=== PATIENT | male | born 1955 | race Caucasian/White ===

== ENCOUNTER 2024-09-01 08:05 | Emergency (ER) | payer OTHER ==
--- OUTSIDE RECORDS SUMMARY | 2024-09-01 08:07 | XMS REPORT | Continuity of Care Document ---
Author Name Unknown Address [address] [place] [address] [place] [id number] [facility] [address] [place] [address]. [address] [place] [id number] Care Team Providers Care Roustabout Crew Name Role Phone Naomie Mercado Attending Clinician Unavailable Encounters Start Date/Time End Date/Time Encounter Type Admission Type Attending Clinicians Care Facility Care Department Encounter ID Source 2021-08-05 11:43:36 Outpatient Naomie Mercado [facility] [id number] [facility]
[2024-09-01] MEDS ORDERED: NA CHLORIDE 0.9% 500 ML ONE ×2 (10:07→11:51)
--- NOTE | 2024-09-01 10:12 | RAD REPORT ---
EXAM: CT Head Brain Wo Cont HISTORY: HEADACHE COMPARISON: None TECHNIQUE: Multiple contiguous axial images were obtained for a CT of the brain without contrast. Sag ittal and coronal reformats were performed. One or more of the following dose reduction techniques were used: Automated exposure control, adjus tment of the mA and kV according to patient size, and iterative reconstruction. Unless otherwise specified, incidental findings do not require dedicated imaging follow-up. FINDINGS: No evidence of hydrocephalus, intracranial hemorrhage, or extra-axial fluid collection. The brain is normal in morphology. The calvarium is intact. The visualized paranasal sinuses and mastoid air cells are essentially clear . IMPRESSION: No evidence of acute intracranial abnormality.
--- NOTE | 2024-09-01 10:12 | RAD REPORT ---
EXAMINATION: ONE VIEW CHEST XR CLINICAL INDICATION: Male, 69 years old.,COUGH TECHNIQUE: Frontal chest projection is submitted. Examination is limited by patient positioning and t echnique. COMPARISON: No prior exam. FINDINGS: The lungs are well inflated and clear. No pneumothorax or sizable effusion. The heart is normal in s ize. Mediastinal contours are unremarkable. IMPRESSION: No acute intrathoracic abnormalities.
[2024-09-01 10:48] LABS: Specific Gravity 1.013 (1.005-1.030); Urine Bilirubin NEGATIVE (Negative); Urine Blood Negative (Negative); Urine Clarity Clear (Clear); Urine Color Light-Yellow (Yellow); Urine Glucose NEGATIVE (Negative); Urine Ketones NEGATIVE (Negative); Urine Microscopic Reflex YN NO UMIC; Urine Nitrite NEGATIVE (Negative); Urine Protein NEGATIVE (Negative); Urine Urobilinogen Normal (Normal); Urine pH 6.5 (5.0-7.0)
[2024-09-01 10:51] LABS: Absolute Monocytes 0.3 K/uL (0.1-1.3); Absolute Neutrophil 4.9 K/uL (1.8-8.0); Basophils % 0.5 % (0-1.3); Eosinophils % 0.3 % (0-4.4); Hematocrit 43.5 % (39.6-49.0); Hemoglobin 14.5 g/dL (13.6-17.9); Lymphocytes % 16.5 % (15.3-44.8); MCHC 33.4 g/dL (32.0-36.0); MCV 89.9 fL (80-100); MPV 7.9 fL (7.6-11.3); Neutrophils % 77.7 % (41.7-73.7); Platelets 253 thou/uL (152-406); RBC Red Blood Cell Count 4.84 M/uL (4.33-5.43); Red Cell Distribution Width 13.2 % (12.1-15.2)
[2024-09-01 10:56] LABS: PT Prothrombin Time 10.7 SECONDS (10.0-13.0); Protime INR 0.94
[2024-09-01 11:07] LABS: Albumin 3.7 g/dL (3.4-5.0); Anion Gap 8.5 mEq/L (5.0-15.0); Bilirubin Direct 0.2 mg/dL (0-0.2); Bilirubin Indirect, Calculated 0.5 mg/dL (0.2-0.8); Bilirubin Total 0.7 mg/dL (0.2-1.0); Globulin 3.6 g/dL (2.3-3.5); Magnesium 2.1 mg/dL (1.6-2.4); Potassium 4.5 mEq/L (3.5-5.1); Protein, Total 7.3 g/dL (6.4-8.2)
[2024-09-01] MEDS ORDERED: ONDANSETRON 4 MG/2 ML VIAL ONE (11:51)
[2024-09-01] MEDS ORDERED: KETOROLAC 30 MG/ML INJ ONE (11:51)
--- NOTE | 2024-09-01 13:02 | RAD REPORT ---
EXAMINATION: CTA HEAD CLINICAL INDICATION: Male, 69 years old. HEADACHE TECHNIQUE: Axial CT images were obtained through the head after intravenous contrast utilizing angiog raphic protocol with 3D post-processing (maximum intensity projection images, volume rendered images and/or shaded surface rendered images). One or more of the following dose reduction technique s were used: Automated exposure control, adjustment of the mA and/or kV according to patient size, and/or iterative reconstruction. Unless otherwise specified, incidental findings do not require dedic ated imaging follow-up. COMPARISON: Head CT of the same day. FINDINGS: ICA: The petrous, cavernous, and supraclinoid segments of the bilateral internal carotid arteries are normal. CASIMIRO: Anterior cerebral arteries are normal bilaterally. The anterior communicating artery is patent. 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 PERFORMANCE MANAGEMENT CONSULTANT: Posterior cerebral arteries are normal bilaterally. Patent posterior communicating arteries, wit h hypoplastic left P1 segment. Vertebrobasilar: Multifocal narrowing of the nondominant right vertebral artery. Left vertebral arter y is patent.. The basilar artery is normal in appearance. 3D images confirm these findings. IMPRESSION: Multifocal narrowing of the nondominant right vertebral artery, suggesting intracranial atherosclerot ic disease. No other evidence of large vessel occlusion or critical stenosis.
--- NOTE | 2024-09-01 13:07 | RAD REPORT ---
EXAMINATION: CT Neck Angio CLINICAL INDICATION: Male, 69 years old. [facility] MAIN PAIN Bed Name: 11 TECHNIQUE: Axial CT images were obtained from the aortic arch to the skull base after intravenous con trast utilizing angiographic protocol. Multiplanar reformats, as well as 3D post-processing (maximum intensity projection images, volume rendered images and/or shaded surface rendered images) w ere generated and reviewed. One or more of the following dose reduction techniques were used: Automated exposure control, adjustment of the mA and/or kV according to patient size, and/or iterativ e reconstruction. Unless otherwise specified, incidental findings do not require dedicated imaging follow-up. COMPARISON: No prior exam. FINDINGS: AORTA: The imaged aortic arch is normal. Normal three-vessel configuration of the arch. CCA: No artifact The common carotid arteries are patent and normal in caliber. ICA/ECA: Significant short segment narrowing of the proximal right ICA along a 5 mm segment, starting approximately 1.1 cm past the origin, with narrowest luminal diameter 1.4 mm, see series 402 image 140, compared to 4.5 mm distally, amounting to 69% stenosis. Multifocal moderate narrowing along the most distal right cervical ICA is well with narrowest luminal diameter 2.2 mm. Moderate atherosclerotic plaque along the proximal left ICA, without significant stenosis about 50%. External carotid arteries are patent. VERTEBRAL: Bilateral severe narrowing at the origins of the bilaterally. Multifocal narrowing through out the course of the right cervical vertebral artery, most pronounced along the mid to distal right V3 segment at the level of C2 transverse foramen. Left vertebral artery is dominant. SOFT TISSUE: No significant neck soft tissue abnormalities. The visualized lung apices are clear. 3D images confirm these findings. IMPRESSION: Significant short segment stenosis of the proximal right ICA, with up to 69% stenosis by NASA criteri a. Moderate multifocal stenosis along the distal right cervical ICA is well. Bilateral severe focal narrowing at the vertebral artery origins. NASCET criteria used to quantify ICA stenosis, with the following grading scheme: Mild 0-49% stenosis Moderate 50-69% stenosis Severe 70-99% stenosis Reference: [place] Symptomatic Carotid Endarterectomy Trial Collaborators; Jodi MENJIVAR, Kathy AVALOS, Subha RB, et al. Beneficial effect of carotid endarterectomy in symptomatic patients with high-grade carotid stenosis. N Engl J Med. 1990 15;325(7):445-53.
--- NOTE | 2024-09-01 13:22 | ER ---
Nurse's Notes [facility] Name: Jose Murray Age: 69 yrs Sex: Male : 1955 Arrival Date: 09/01/2024 Time: 08:05 Bed 11 Private MD: Diagnosis: Headache;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;Occlusion and stenosis of right carotid artery Presentation: 09/01 09:08 Chief complaint: Patient states: he was woken up in the middle of the night with head ap3 and neck pain that he felt in "the middle of my temples and down the right side of my ear and into my both side of my neck" patient states "I took one of my 's pain pills to help me go back to sleep because 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 Patient states that his fingers got "tingly like they were going to sleep" during this time. Patient states that he currently has a pain on the right side of his neck, but it has improved since the night. Patient reports the feeling of "sleepiness" in his fingers has also improved. patient currently rates his head pain as a 1/10 on the pain scale. Coronavirus screen: At this time, the client does not indicate any symptoms associated with coronavirus-19. Ebola Screen: No symptoms or risks identified at this time. Initial Sepsis Screen: Does the patient meet any 2 criteria? No. Patient's initial sepsis screen is negative. Does the patient have a suspected source of infection? No. Patient's initial sepsis screen is negative. Risk Assessment: Do you want to hurt yourself or someone else? Patient reports no desire to harm self or others. Onset of symptoms is unknown. 09:08 Method Of Arrival: Wheelchair ap3 09:08 Acuity: WILLIAM 2 ap3 Triage Assessment: 09:15 General: Appears in no apparent distress. Behavior is calm, cooperative, appropriate ap3 for age. Pain: Complains of pain in scalp, posterior cervical area, left trapezius and right trapezius Pain currently is 1 out of 10 on a pain scale. Neuro: Level of Consciousness is awake, alert, obeys commands, Oriented to person, place, time, situation, Appropriate for age. Cardiovascular: Patient's skin is warm and dry. Respiratory: Airway is patent Respiratory effort is even, unlabored, Respiratory pattern is regular, symmetrical. Historical: - Allergies: 09:14 No Known Allergies; ap3 - Home Meds: 09:14 None [Active]; ap3 - PMHx: 09:14 tuomor removed from right ear; ap3 - Immunization history:: Client reports having NOT received the Covid vaccine. Flu vaccine is not up to date. - Infectious Disease History:: Denies. - Social history:: Smoking status: Patient denies any tobacco usage or history of. - Family history:: not pertinent. Screenin:16 Abuse screen: Denies threats or abuse. Nutritional screening: No deficits noted. ap3 Tuberculosis screening: No symptoms or risk factors identified. 10:22 [facility] ED Fall Risk Assessment (Adult) History of falling in the last 3 months, hb including since admission No falls in past 3 months (0 pts) Confusion or Disorientation No (0 pts) Intoxicated or Sedated No (0 pts) Impaired Gait No (0 pts) Mobility Assist Device Used No (0 pt) Altered Elimination No (0 pt) Score/Fall Risk Level 0 - 2 = Low Risk Oriented to surroundings, Maintained a safe environment, Educated pt \\T\\ family on fall prevention, incl call for assistance when getting out of bed. Assessment: 10:22 General: Appears in no apparent distress. Behavior is calm, cooperative. Pain: Pain hb currently is 1 out of 10 on a pain scale. Neuro: Level of Consciousness is awake, alert, obeys commands, Oriented to person, place, time, situation. Cardiovascular: Patient's skin is warm and dry. Respiratory: Respiratory effort is even, unlabored, Respiratory pattern is regular, symmetrical. GI: No signs and/or symptoms were reported involving the gastrointestinal system. : No signs and/or symptoms were reported regarding the genitourinary system. EENT: No signs and/or symptoms were reported regarding the EENT system. Derm: Skin is pink, warm \\T\\ dry. Musculoskeletal: Reports bilat neck pain that radiates to back of head. 11:47 Reassessment: Patient appears in no apparent distress at this time. Patient and/or hb family updated on plan of care and expected duration. Pain level reassessed. Patient is alert, oriented x 3, equal unlabored respirations, skin warm/dry/pink. 13:00 Reassessment: Patient appears in no apparent distress at this time. Patient and/or hb family updated on plan of care and expected duration. Pain level reassessed. Patient is alert, oriented x 3, equal unlabored respirations, skin warm/dry/pink. 14:34 Reassessment: Patient appears in no apparent distress at this time. Patient and/or hb family updated on plan of care and expected duration. Pain level reassessed. Patient is alert, oriented x 3, equal unlabored respirations, skin warm/dry/pink. 15:04 Reassessment: Patient appears in no apparent distress at this time. No changes from jl7 previously documented assessment. Patient and/or family updated on plan of care and expected duration. Pain level reassessed. Patient is alert, oriented x 3, equal unlabored respirations, skin warm/dry/pink. Vital Signs: 09:08 BP 169 / 110; Pulse 65; Resp 18; Temp 98; Pulse Ox 100% ; Weight 76.2 kg; Height 5 ft. ap3 9 in. ; Pain 1/10; 13:30 BP 165 / 95; Pulse 72; Resp 17; Pulse Ox 100% ; Pain 0/10; jl7 14:34 BP 165 / 85; Pulse 75; Resp 16; Pulse Ox 99% on R/A; hb 09:08 Body Mass Index 24.81 (76.20 kg, 175.26 cm) ap3 09:08 Pain Scale: Adult ap3 13:30 Pain Scale: Adult jl7 Dipika Coma Score: 11:47 Eye Response: spontaneous(4). Motor Response: obeys commands(6). Verbal Response: jamilah oriented(5). Total: 15. NIH Stroke Scale Scores: 13:09 NIHSS Score: 0 jamilah ED Course: 08:08 Patient arrived in ED. mr 08:08 Ryne Bryant MD is Attending Physician. jamilah 08:39 XRAY Chest (1 view) In Process Unspecified. EDMS 09:00 CT Head Brain wo Cont In Process Unspecified. EDMS 09:14 Triage completed. ap3 09:16 Arm band placed on right wrist. ap3 10:06 Carmen Hawkins, RN is Primary Nurse. hb 10:22 Patient has correct armband on for positive identification. Provided Education on: use hb of call light, tests, result times. 10:40 Initial lab(s) drawn, by me, sent to lab. Inserted saline lock: 20 gauge in right hb antecubital area, using aseptic technique. Blood collected. Flushed with 10 mL NS. 10:40 Urine collected: clean catch specimen, clear. hb 12:04 CT Head Angio In Process Unspecified. EDMS 12:04 CT Neck Angio In Process Unspecified. EDMS 13:10 Troponin High Sensitivity: NOW Sent. hb 13:38 1338 called [facility] for transfer talked to Ruba. Pt's requested to go sp to [facility]. 14:[address] Memo Peña accepted pt to [facility]. [address] [id number] 1422 admin sp approval by Ruba Traore report number [phone] [facility] IMU bed 725 fax number [phone] Face sheet and MOT called [facility] talked to Leo. 15:04 No provider procedures requiring assistance completed. Patient transferred, IV remains jl7 in place. intact, No redness/swelling at site. Administered Medications: 10:43 Drug: NS 0.9% IV 500 ml 500 ml IV at 1 bolus once; to be given as a bolus over 30 hb minutes Volume: 500 ml; Route: IV; Rate: 1 bolus; Site: right antecubital; 11:15 Follow up: Response: No adverse reaction; IV Status: Completed infusion; IV Intake: hb 500ml 11:55 Drug: NS 0.9% IV 500 ml 500 ml IV at 1 bolus once; to be given as a bolus over 30 hb minutes Volume: 500 ml; Route: IV; Rate: 1 bolus; Site: right antecubital; 13:00 Follow up: Response: No adverse reaction; IV Status: Completed infusion; IV Intake: jl7 500ml 11:55 Drug: Ketorolac IVP 15 mg IVP once Route: IVP; Site: right antecubital; hb 12:30 Follow up: Response: No adverse reaction hb 11:55 Drug: Ondansetron IVP 4 mg IVP once; over 2 minutes Route: IVP; Site: right antecubital;hb 12:30 Follow up: Response: No adverse reaction hb 13:11 CANCELLED (Duplicate Order): aspirinchewable tablet 81 mg PO once jamilah 13:46 Drug: Aspirin PO Chewable Tablet 162 mg PO once Route: PO; jl7 15:06 Follow up: Response: No adverse reaction jl7 13:46 Drug: Atorvastatin PO 40 mg PO once Route: PO; jl7 15:06 Follow up: Response: No adverse reaction jl7 13:46 Drug: Clopidogrel PO 75 mg PO once Route: PO; jl7 15:06 Follow up: Response: No adverse reaction jl7 14:42 Drug: foLIC Acid IVPB 1 mg IVPB once Route: IVPB; Site: right antecubital; jl7 14:43 Follow up: Response: No adverse reaction; IV Status: Completed infusion jl7 Medication: 10:22 VIS not applicable for this client. hb Intake: 11:15 IV: 500ml; Total: 500ml. hb 13:00 IV: 500ml; Total: 1000ml. jl7 Outcome: 13:21 ER care complete, transfer ordered by . jamilah 15:41 Transferred by ground EMS to [facility], Transfer form completed. jl7 15:41 Condition: stable 15:41 Discharge instructions given to patient, family, Instructed on the need for transfer, Demonstrated understanding of instructions, 15:41 Patient left the ED. jl7 NIH Stroke Scale - NIH Stroke Score Date: 09/01/2024 Time: 13:09 Total Score = 0 10. Dysarthria (speech clarity - read or repeat words) - 0(Normal) 11. Extinction and Inattention (visual/tactile/auditory/spatial/personal) - 0(No abnormality) 1a. Level of Consciousness (LOC) - 0(Alert) 1b. Level of Consciousness (LOC) (Month \\T\\ Age) - 0(Both) 1c. LOC Commands (Open \\T\\ Closes Eyes/Canal Structure Operator) - 0(Both) 2. Best Gaze (Lateral Gaze Paresis) - 0(Normal) 3. Visual Field Loss - 0(No visual loss) 4. Facial Palsy - 0(Normal) 5a. Left Arm: Motor (10-second hold) - 0(No drift) 5b. Right Arm: Motor (10-second hold) - 0(No drift) 6a. Left Leg: Motor (5-second hold - always test supine) - 0(No drift) 6b. Right Leg: Motor (5-second hold - always test supine) - 0(No drift) 7. Limb Ataxia (finger/nose \\T\\ heel/young - test with eyes open) - 0(Absent) 8. Sensory Loss (pinprick arms/legs/face) - 0(Normal) 9. Best Language: Aphasia (description/naming/reading) - 0(No aphasia) Initials: [facility] Signatures: Dispatcher [employer] Ryne Casey, MD MD jamilah Lazaro, Merlene Brito, Ana, Reg Reg mr Carmen Hawkins, RN RN Dav Moran RN RN jl7 Shasha Lewis RN RN ap3
--- NOTE | 2024-09-01 13:22 | EDPHYS ---
Physician Documentation [facility] Name: Jose Murray Age: 69 yrs Sex: Male : 1955 Arrival Date: 09/01/2024 Time: 08:05 Bed 11 Private MD: ED Physician Ryne Bryant HPI: 09/01 11:44 This 69 yrs old Male presents to ER via Wheelchair with complaints of Head jamilah pain, finger numbness. 11:44 The patient presents with pain, that is acute. The complaints affect the right ear and jamilah left ear. Onset: The symptoms/episode began/occurred 1 day(s) ago. Modifying factors: The symptoms are alleviated by nothing, the symptoms are aggravated by nothing. The patient complains of pain to the right ear, left ear, left temporal area and right temporal area. The patient describes the headache as aching. Associated signs and symptoms: The patient has no apparent associated signs or symptoms. Severity of symptoms: At its worst the pain was moderate, in the emergency department the pain is unchanged. Headache History: Denies prior headaches. Associated signs and symptoms: The patient has no apparent associated signs or symptoms. Historical: - Allergies: 09:14 No Known Allergies; ap3 - Home Meds: 09:14 None [Active]; ap3 - PMHx: 09:14 tuomor removed from right ear; ap3 - Immunization history:: Client reports having NOT received the Covid vaccine. Flu vaccine is not up to date. - Infectious Disease History:: Denies. - Social history:: Smoking status: Patient denies any tobacco usage or history of. - Family history:: not pertinent. ROS: 11:44 Constitutional: Negative for fever, chills, and weight loss, Eyes: Negative for injury, jamilah pain, redness, and discharge, Neck: Negative for injury, pain, and swelling, Cardiovascular: Negative for chest pain, palpitations, and edema, Respiratory: Negative for shortness of breath, cough, wheezing, and pleuritic chest pain, Abdomen/GI: Negative for abdominal pain, nausea, vomiting, diarrhea, and constipation, Back: Negative for injury and pain, : Negative for injury, bleeding, discharge, and swelling, MS/Extremity: Negative for injury and deformity, Skin: Negative for injury, rash, and discoloration, Psych: Negative for depression, anxiety, suicide ideation, homicidal ideation, and hallucinations, Allergy/Immunology: Negative for hives, rash, and allergies, Endocrine: Negative for neck swelling, polydipsia, polyuria, polyphagia, and marked weight changes, Hematologic/Lymphatic: Negative for swollen nodes, abnormal bleeding, and unusual bruising, 11:44 ENT: Positive for ear pain, :44 Neuro: Positive for headache, Exam: 11:44 Constitutional: This is a well developed, well nourished patient who is awake, alert, jamilah and in no acute distress. Head/Face: Normocephalic, atraumatic. Eyes: Pupils equal round and reactive to light, extra-ocular motions intact. Lids and lashes normal. Conjunctiva and sclera are non-icteric and not injected. Cornea within normal limits. Periorbital areas with no swelling, redness, or edema. Neck: Trachea midline, no thyromegaly or masses palpated, and no cervical lymphadenopathy. Supple, full range of motion without nuchal rigidity, or vertebral point tenderness. No Meningismus. Chest/axilla: Normal chest wall appearance and motion. Nontender with no deformity. No lesions are appreciated. Cardiovascular: Regular rate and rhythm with a normal S1 and S2. No gallops, murmurs, or rubs. Normal PMI, no JVD. No pulse deficits. Respiratory: Lungs have equal breath sounds bilaterally, clear to auscultation and percussion. No rales, rhonchi or wheezes noted. No increased work of breathing, no retractions or nasal flaring. Abdomen/GI: Soft, non-tender, with normal bowel sounds. No distension or tympany. No guarding or rebound. No evidence of tenderness throughout. Back: No spinal tenderness. No costovertebral tenderness. Full range of motion. Male : Normal genitalia with no discharge or lesions. Skin: Warm, dry with normal turgor. Normal color with no rashes, no lesions, and no evidence of cellulitis. MS/ Extremity: Pulses equal, no cyanosis. Neurovascular intact. Full, normal range of motion., bilateral aka Neuro: Awake and alert, GCS 15, oriented to person, place, time, and situation. Cranial nerves II-XII grossly intact. Motor strength 5/5 in all extremities. Sensory grossly intact. Cerebellar exam normal. Normal gait. Psych: Awake, alert, with orientation to person, place and time. Behavior, mood, and affect are within normal limits. 11:44 ENT: TM's: loss of bony landmarks, that is moderate, bilaterally, Nose: is normal, Mouth: is normal, no acute changes, Posterior pharynx: is normal, no acute changes, Airway: normal, no evidence of obstruction, 11:44 ECG was reviewed by the Attending Physician. Vital Signs: 09:08 BP 169 / 110; Pulse 65; Resp 18; Temp 98; Pulse Ox 100% ; Weight 76.2 kg; Height 5 ft. ap3 9 in. ; Pain 1/10; 13:30 BP 165 / 95; Pulse 72; Resp 17; Pulse Ox 100% ; Pain 0/10; jl7 14:34 BP 165 / 85; Pulse 75; Resp 16; Pulse Ox 99% on R/A; hb 09:08 Body Mass Index 24.81 (76.20 kg, 175.26 cm) ap3 09:08 Pain Scale: Adult ap3 13:30 Pain Scale: Adult jl7 NIH Stroke Scale Scores: 13:09 NIHSS Score: 0 jamilah [place] Coma Score: 11:47 Eye Response: spontaneous(4). Motor Response: obeys commands(6). Verbal Response: jamilah oriented(5). Total: 15. MDM: 08:08 Medical Screening Exam initiated jamilah 11:47 Differential diagnosis: otitis media, cerumen impaction, barotrauma , serotympanum, jamilah cluster headache, cerebral vascular accident, migraine, neoplasm, otitis, subarachnoid bleed, subdural hematoma, temporal arteritis, tension headache, traumatic injuries. Data reviewed: vital signs, nurses notes, lab test result(s), EKG, radiologic studies, CT scan, plain films. Consideration of Admission/Observation Escalation of care including admission/observation considered. I considered the following discharge prescriptions or medication management in the emergency department Medications were administered in the Emergency Department. See MAR. Independent interpretation of the following test(s) in the Emergency Department EKG: See my EKG interpretation above. Test considered but Not performed: MRI: NO MRI BRAIN. Care significantly affected by the following chronic conditions: Cancer. 09/01 08:09 Order name: Basic Metabolic Panel; Complete Time: 11:35 [facility] 09/01 08:09 Order name: CBC with Diff; Complete Time: 11:35 09/01 08:09 Order name: LFT's; Complete Time: 11:35 09/01 08:09 Order name: Magnesium; Complete Time: 11:35 09/01 08:09 Order name: NT PRO-BNP; Complete Time: 11:35 09/01 08:09 Order name: PT-INR; Complete Time: 11:35 09/01 08:09 Order name: Troponin HS; Complete Time: 11:35 09/01 08:09 Order name: Urinalysis w/ reflexes; Complete Time: 11:35 09/01 11:41 Order name: Troponin High Sensitivity: NOW; Complete Time: 14:12 09/01 13:19 Order name: Lipid Profile; Complete Time: 14:12 09/01 08:09 Order name: XRAY Chest (1 view); Complete Time: 11:35 09/01 08:09 Order name: CT Head Brain wo Cont; Complete Time: 11:35 09/01 11:41 Order name: CT Head Angio; Complete Time: 13:03 09/01 11:41 Order name: CT Neck Angio; Complete Time: 13:08 09/01 08:09 Order name: Cardiac monitoring; Complete Time: 10:43 09/01 08:09 Order name: EKG - Nurse/Tech; Complete Time: 10:43 09/01 08:09 Order name: IV Saline Lock; Complete Time: 10:43 09/01 08:09 Order name: Labs collected and sent; Complete Time: 10:43 09/01 08:09 Order name: O2 Per Protocol; Complete Time: 10:09/01 08:09 Order name: O2 Sat Monitoring; Complete Time: 10: [facility] EC:44 Rate is 56 beats/min. Rhythm is regular. QRS [place] is Normal. MI interval is normal. QRS jamilah interval is normal. QT interval is normal. No Q waves. T waves are Normal. No ST changes noted. Clinical impression: Sinus bradycardia and No evidence of ischemia. Interpreted by me. Reviewed by me. Administered Medications: 10:43 Drug: NS 0.9% IV 500 ml 500 ml IV at 1 bolus once; to be given as a bolus over 30 hb minutes Volume: 500 ml; Route: IV; Rate: 1 bolus; Site: right antecubital; 11:15 Follow up: Response: No adverse reaction; IV Status: Completed infusion; IV Intake: hb 500ml 11:55 Drug: NS 0.9% IV 500 ml 500 ml IV at 1 bolus once; to be given as a bolus over 30 hb minutes Volume: 500 ml; Route: IV; Rate: 1 bolus; Site: right antecubital; 13:00 Follow up: Response: No adverse reaction; IV Status: Completed infusion; IV Intake: jl7 500ml 11:55 Drug: Ketorolac IVP 15 mg IVP once Route: IVP; Site: right antecubital; hb 12:30 Follow up: Response: No adverse reaction hb 11:55 Drug: Ondansetron IVP 4 mg IVP once; over 2 minutes Route: IVP; Site: right antecubital;hb 12:30 Follow up: Response: No adverse reaction hb 13:11 CANCELLED (Duplicate Order): aspirinchewable tablet 81 mg PO once jamilah 13:46 Drug: Aspirin PO Chewable Tablet 162 mg PO once Route: PO; jl7 15:06 Follow up: Response: No adverse reaction jl7 13:46 Drug: Atorvastatin PO 40 mg PO once Route: PO; jl7 15:06 Follow up: Response: No adverse reaction jl7 13:46 Drug: Clopidogrel PO 75 mg PO once Route: PO; jl7 15:06 Follow up: Response: No adverse reaction jl7 14:42 Drug: foLIC Acid IVPB 1 mg IVPB once Route: IVPB; Site: right antecubital; jl7 14:43 Follow up: Response: No adverse reaction; IV Status: Completed infusion jl7 Disposition Summary: 09/01/24 13:21 Transfer Ordered Notes: Transfer Location: [facility] jamilah Reason: Higher level of care jamilah Condition: Fair jamilah Problem: new jamilah Symptoms: have improved jamilah Accepting Physician: FAWAD GUZMÁN(09/01/24 15:41) jl7 Diagnosis - Headache jamilah - 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 jamilah - Occlusion and stenosis of right carotid artery jamilah Discharge Instructions: - Discharge Summary Sheet jamilah - General Headache Without Cause jamilah - Aspirin and Your Heart jamilah - General Headache Without Cause, [id number] jamilah Forms: - Medication Reconciliation Form jamilah - SBAR form jamilah Prescriptions: - diclofenac sodium 50 mg Oral tablet, delayed release (enteric coated) - take 1 tablet ORAL route 3 times per day; 21 tablet; Refills: 0, Product [facility] Selection Permitted - Tramadol 50 mg Oral Tablet - take 1 tablet ORAL route every 8 hours as needed; 12 tablet; Refills: 0, [facility] Product Selection Permitted NIH Stroke Scale - NIH Stroke Score Date: 09/01/2024 Time: 13:09 Total Score = 0 10. Dysarthria (speech clarity - read or repeat words) - 0(Normal) 11. Extinction and Inattention (visual/tactile/auditory/spatial/personal) - 0(No abnormality) 1a. Level of Consciousness (LOC) - 0(Alert) 1b. Level of Consciousness (LOC) (Month \T\ Age) - 0(Both) 1c. LOC Commands (Open \T\ Closes Eyes/Pollution Control Engineer) - 0(Both) 2. Best Gaze (Lateral Gaze Paresis) - 0(Normal) 3. Visual Field Loss - 0(No visual loss) 4. Facial Palsy - 0(Normal) 5a. Left Arm: Motor (10-second hold) - 0(No drift) 5b. Right Arm: Motor (10-second hold) - 0(No drift) 6a. Left Leg: Motor (5-second hold - always test supine) - 0(No drift) 6b. Right Leg: Motor (5-second hold - always test supine) - 0(No drift) 7. Limb Ataxia (finger/nose \T\ heel/young - test with eyes open) - 0(Absent) 8. Sensory Loss (pinprick arms/legs/face) - 0(Normal) 9. Best Language: Aphasia (description/naming/reading) - 0(No aphasia) Initials: [facility] Signatures: Dispatcher [employer] EDMS Ryne Bryant MD MD cha Baxter, Heather, RN RN Dav Moran RN RN jl7 Shasha Lewis RN RN ap3 Corrections: (The following items were deleted from the chart) 08:10 08:10 Head Brain Wo Cont+CT.RAD.BRZ ordered. EDMS EDMS 11:41 11:41 Troponin High Sensitivity+C.LAB.BRZ ordered. EDMS EDMS 13:11 13:04 Aspirin PO Chewable Tablet 81 mg PO once ordered. formerly [facility] 13:25 13:21 TO RAMIREZ askew cha 15:41 13:25 TO RAMIREZ coello
[2024-09-01] MEDS ORDERED: CLOPIDOGREL 75 MG TABLET ONE (13:24)
[2024-09-01] MEDS ORDERED: ASPIRIN 81 MG CHEWABLE TABLET ONE (13:25)
[2024-09-01] MEDS ORDERED: ATORVASTATIN 40 MG TAB ONE (13:25)
[2024-09-01] MEDS ORDERED: FOLIC ACID 5 MG/ML VIAL ONE (14:33)
[2024-09-01 17:37] VITALS: TEMP 98
[2024-09-01 17:42] VITALS: BP 165/85; O2SAT 99
--- NOTE | 2024-09-03 12:03 | EKG ---
Test Date: 2024-09-01 Test Time: 10:53:25 Business Technology Architect: HAIDER MEASUREMENT RESULTS: Intervals: Rate: 56 CA: 134 QRSD: 96 QT: 414 QTc: 399 [place]: P: 35 CA: 134 QRS: 65 T: 73 INTERPRETIVE STATEMENTS: Sinus bradycardia Otherwise normal ECG No previous ECG available for comparison Electronically Signed On 09-03-24 11:59:35 NITRATE OPERATOR by Dank Camarena
== END 2024-09-01 15:41 | disposition short-term general hospital (02) ==
LOC: ER 08:05
DX: I65.21 Occlusion and stenosis of right carotid artery (principal); I65.01 Occlusion and stenosis of right vertebral artery
CPT/HCPCS: 96361; 93005; 85025; 80048; 36415; 83735; 85610; 80061; 80076; 81003; 84484 ×2; 83880; 70450; 70496; 70498; 71045; 96375; 96374; 99285; Q9967; J2405; J7040 ×2